=== PATIENT | male | born 2005 | race Hispanic/Latino ===

== ENCOUNTER 2025-08-04 06:42 | Day surgery (SDC) | payer BC ==
[2025-07-31 12:14] LABS: IMMATURE GRANULOCYTE ABSOLUTE 0.09 K/uL (0-1); NUCLEATED RED BLOOD CELLS 0.0 % (0.0-0.19); PLATELET COUNT (AUTO) 264 K/uL (130-400); RED BLOOD CELL COUNT(AUTO) 5.64 MIL/uL (4.50-6.20); RED CELL DISTRIBUTION WIDTH 12.5 % (11.0-15.5); WHITE BLOOD COUNT (AUTO) 6.5 K/uL (4.8-10.8)
--- NOTE | 2025-07-31 12:19 | EKG ---
[facility] Test Date: 2025-07-31 Test Time: 12:01:31 Pat Name: ANITHA SILVEIRA Department: [facility] Room: Gender: M Anode Builder: [id number] : 2005 Requested By: MALI MARQUIS Order Number: [id number] Reading MD: Josh Dahl Measurements Intervals [place] Rate: 58 P: -15 WI: 156 QRS: 17 QRSD: 97 T: 7 QT: 384 QTc: 377 Interpretive Statements Sinus rhythm ST elev, probable normal early repol pattern No previous ECG available for comparison Electronically Signed On 07-31-2025 15:38:40 CDT by Josh Dahl Please click the below link to view image of tracing.
[2025-07-31 12:20] VITALS: BP 113/71; PULSE 71; RESP 17; TEMP 99.3
[2025-07-31 12:28] LABS: INR 1.08 (0.85-1.15)
[2025-07-31 12:34] LABS: ASPARTATE AMINOTRANSFERASE 23.0 U/L (10-37); CREATININE 0.8 mg/dL (0.5-1.3); GLOMERULAR FILTR. RATE CALC 128.0 mL/min (>90); GLUCOSE,RANDOM 96.0 mg/dL (70-105); SODIUM SERUM 139.0 mmol/L (136-145); TOTAL PROTEIN, SERUM 8.5 g/dL (6.0-8.3); UREA NITROGEN, BLOOD 17.0 mg/dL (7-18)
[~2025-08-04] VITALS: Ht 175.3 cm; Wt 76.4 kg
[2025-08-04] VITALS (18 sets, daily range): BP systolic 101–124; BP diastolic 58–90; PULSE 52–77; RESP 14–17; TEMP 97.3–97.7
[~2025-08-04 06:42] MED LIST: CLIN-141 PO; IBUP-1492 PO; MUPI22O TP
[2025-08-04] MEDS: LACTATED RINGERS 1000ML 1,000 ML IV ONE (07:25)
[2025-08-04] MEDS ORDERED: LIDOCAINE PF 100MG/5ML (2%) SYRINGE 5ML ONE (07:26)
[2025-08-04] MEDS ORDERED: GLYCOPYRROLATE 0.2 MG/ML 5 ML VIAL ONE (07:27)
[2025-08-04] MEDS ORDERED: MIDAZOLAM HCL 1 MG/ML 2ML VIAL ONE (07:27)
[2025-08-04] MEDS ORDERED: NEOSTIGMINE METHYLSULFATE 1MG/ML IV ONE (07:28)
[2025-08-04] MEDS ORDERED: LIDOCAINE HCL 2% PF 20 ML JEL DISP.SYRIN MM ONE (08:16)
[2025-08-04] MEDS ORDERED: LIDOCAINE 1%-EPI 1:100,000 20 ML VIAL ONE (08:17)
--- NOTE | 2025-08-04 11:07 | NUR ---
DRESSING: DRESSING TO LOWER BACK DRY/INTACT WITH NO ACTIVE BLEEDING PRESENT.
--- NOTE | 2025-08-04 11:11 | OP ---
Operative Note: DATE OF PROCEDURE: 08/04/25 SURGEON: MALI MARQUIS MD ASSOCIATE PROFESSOR OF VIOLIN: None ANESTHESIA: General ANESTHESIOLOGIST/INDUSTRIAL MANUFACTURING TECHNICIAN: INDUSTRIAL MANUFACTURING TECHNICIAN PREOPERATIVE DIAGNOSIS: Chronic Pilonidal Sinus POSTOPERATIVE DIAGNOSIS: Chronic Pilonidal Sinus PROCEDURE: Pilonidal Cystectomy Rotational flap closure of skin and subcutaneous tissue measuring 12 x 6 cm ESTIMATED BLOOD LOSS: Minimal INDICATIONS: Mr. Weldon is a very pleasant 20 year old male who presents with a chronic pilonidal sinus with prior abscess. Complications, risk, alternative and benefits were explained to the patient including but not limited to infection, bleeding, injury to the sphincter leading to incontinence, recurrence of disease and need for additional procedures. The patient voiced understanding and wished to proceed with surgery. All of the patient's questions were answered to his satisfaction. DESCRIPTION OF PROCEDURE: After informed consent was obtained and the patient was marked in the preoperative area, the patient was taken to the operating room and laid in the supine position. Once general anesthesia was obtained, the patient was carefully placed into the prone position. Next the gluteal region was prepped and draped in the usual sterile fashion. A timeout was performed to confirm the correct patient and procedure. A scimitar type incision was made to include the pits and the palpable pilonidal cavity in order to perform complete excision of the pil onidal pits and lift the cleft. Next using a 15 blade scalpel the skin was incised down to the subcutaneous tissue. We then excised only the overlying skin and pits. Hemostasis was obtained. There was a significant amount of chronic granulation tissue and hair within the separate sinus cavities. This was thoroughly debrided and irrigated to clean all granulation tissue and hair. Once this was done we then performed a skin and subcutaneous flap out to the lines of safety in the left gluteal cleft in order to perform the rotational flap closure. The wound measured approximately 12 x 6 cm in size. Once the flap was created up to the lines of safety we used the perianal fat in order to perform the cleft lift. We then made several incisions using electrocautery within the chronic thickened tissue to relieve any tension on the flap closure. Once this was done we then began closure of the rotational flap in order to lift the cleft and close the wound. The skin and tissue of the left gluteal region was then brought across the midline into the right gluteal region in order to obliterate the deep cleft and close the wound. In order to adequately close the wound, this was closed in several layers with the deep layer using 3-0 PDS sutures. Once the first layer which was the deepest layer was closed we then laid a vessel loop within the wound bed to promote postoperative drainage. We then closed the second layer using 2-0 Vicryl sutures. Once this was done we then approximated the skin using 3-0 Vicryl sutures. The skin was then closed using 4-0 vicryl sutures. We then placed several nylon stitches to take tension off of the closure site. Once this was done a sterile dressing was applied and the vessel loop was secured in place. The patient tolerated the procedure well was taken to the recovery room in stable condition. I discussed the above with the patients mother at completion of the case. MALI MARQUIS MD Aug 04, 2025 11:11
--- NOTE | 2025-08-04 11:52 | NUR ---
DRESSING: DRESSING TO LOWER BACK REMAINS DRY/INTACT WITH NO ACTIVE BLEEDING PRESENT.
== END 2025-08-04 12:00 | disposition home or self-care (01) ==
LOC: DAH 06:42
PROVIDERS: ATTEND Surgery
DX: L05.92 Pilonidal sinus without abscess (principal); L05.91 Pilonidal cyst without abscess; J45.909 Unspecified asthma, uncomplicated; Z88.8 Allergy status to other drugs, medicaments and biological substances
CPT/HCPCS: 80053; 85025; 85610; 85730; 36415; 93005; 11772; 14301; 14302; 88304; A4223 ×2; A6260; A4663; A4606; J7120; J3010 ×2; J3490 ×4; J1100; J0665 ×2; J2003; J2250; J2704; J2405; J1885; J2710; J0690; A4930; A4215; A4213; A4222; A4221; A4216